=== PATIENT | male | born 1995 | race Caucasian/White ===

== ENCOUNTER 2020-05-19 18:48 | Emergency (ER) | payer OTHER ==
[2020-05-19 18:56] VITALS: BP 150/100
--- NOTE | 2020-05-19 19:37 | XRAY Report ---
PROCEDURE: Hand 3 View RT INDICATIONS: pain/swelling TECHNIQUE: 3 views of the hand(s) acquired. COMPARISON: None FINDINGS: Bones: No fractures or dislocations. No suspicious bony lesions. Soft tissues: No suspicious soft tissue calcifications. IMPRESSION: No evidence acute bony abnormality of the right hand. Reviewed by: Mauro Edwards MD on 05/19/2020 7:36 PM PDT Approved by: Mauro Edwards MD on 05/19/2020 7:36 PM PDT Station ID: [id number]
--- NOTE | 2020-05-19 19:37 | ED Physician Documentation ---
History of Present Illness - Stated complaint Stated Complaint: FINGER INJ - Chief complaint Chief Complaint: Ext Problem - History obtained from History obtained from: Patient - Additonal information Additional information: Pt was at work and hammering something. A bolt flew off and struck him in the right index finger. He presents now w/ pain and swelling of the right index finger. Able to move it but not some discomfort at the PIP. 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 Review of Systems Ten Systems: 10 systems reviewed and negative PD PAST MEDICAL HISTORY - Past Medical History Past Medical History: No - Past Surgical History Past Surgical History: No - Allergies Allergies/Adverse Reactions: Allergies Allergy/AdvReac Type Severity Reaction Status Date / Time No Known Drug Allergies Allergy Verified 05/19/20 18:53 - Social History Does the pt smoke?: No Smoking Status: Never smoker Does the pt drink ETOH?: Yes Does the pt have substance abuse?: No - Immunizations Immunizations are current?: No - POLST Patient has POLST: No PD ED PE NORMAL - Vitals Vital signs reviewed: Yes - General General: Alert and oriented X 3, No acute distress, Well developed/nourished - Derm Derm: Normal color, Warm and dry, No rash, Other (skin intact, no puncture on the right hand) - Extremities Extremities: Other (tender right index finger PIP with mild swelling and contusion; normal temp, sensation of the right hand. ) Results - Vitals Vitals: Vital Signs - 24 hr 05/19/20 18:53 Temperature 36.8 C Heart Rate 88 Respiratory 16 Rate Blood Pressure 150/100 H O2 Saturation 99 Oxygen O2 Source Room air PD MEDICAL DECISION MAKING - ED course Complexity details: d/w patient ED course: Pt presented w/ a contusion to the PIP of the right index finger. No fracture per xray. Advised supportive measures including ice, ibu/tylenol, compression if helpful. Return if s/sx of infection though skin is completely intact. Departure - Departure Disposition: 01 Home, Self Care Clinical Impression: Contusion, hand Qualifiers: Encounter type: initial encounter Laterality: right Qualified Code(s): S60.221A - Contusion of right hand, initial encounter Condition: Good Instructions: ED Contusion Hand Comments: You presented w/ hand pain. Your xray was negative for acute fracture or dislocation. You do have some swelling but this will go down over the next few days. Ice and ibuprofen will be helpful. If no improvement in 5-7 days, follow up with your primary doctor.
== END 2020-05-19 20:04 | disposition home or self-care (01) ==
LOC: ED 18:48
DX: S60.021A Contusion of right index finger without damage to nail, initial encounter (principal); W20.8XXA Other cause of strike by thrown, projected or falling object, initial encounter; Y93.89 Activity, other specified; Y99.0 Civilian activity done for income or pay
CPT/HCPCS: 99281; 99283